=== PATIENT | male | born 1970 | race Caucasian/White ===

== ENCOUNTER 2018-12-09 12:36 | Emergency (ER) | payer BC ==
[2018-12-09] MEDS ORDERED: ASPIRIN 81 MG TABLET, CHEWABLE PO ONE (13:02)
--- NOTE | 2018-12-09 13:05 | ER Document Report ---
ED Medical Screen (RME) - General Chief Complaint: Chest Pain Stated Complaint: CHEST PAIN Time Seen by Provider: 12/09/18 13:00 - HPI Notes: 12/09/18 13:02 Patient is a 48-year-old male with a history of hypertension who presents complaining of sudden onset sternal chest pain that began 1.5 hours ago and would radiate up to the left jaw. Patient states that since then the pain has eased off, but is still causing discomfort. He has had diaphoresis associated and is on his second shirt. He is also had some nausea associated. Denies any prolonged immobilization, distance travel, recent surgery/trauma, personal cancer history, hormone use, smoking, or previous DVT/PE. Denies CANALES, fever, neck pain, URI, n/v/d, Abd pain, dysuria, back pain, or rash. I have treated and performed a rapid initial assessment of this patient. A comprehensive ED assessment and evaluation of the patient, analysis of test results and completion of medical decision making process will be conducted by additional ED providers. PHYSICAL EXAMINATION: GENERAL: Well-appearing, well-nourished and in no acute distress. A&Ox4. Answers questions appropriately. LUNGS: Breath sounds clear to auscultation bilaterally and equal. No wheezes rales or rhonchi. HEART: Regular rate and rhythm without murmurs, rubs, gallops. Extremities: No cyanosis, clubbing, or edema b/l. Matt negative bilaterally. No lower extremity asymmetry. NEUROLOGICAL: Normal speech, normal gait. PSYCH: Normal mood, normal affect. - Related Data Allergies/Adverse Reactions: No Known Allergies Allergy (Unverified 12/09/18 12:59) Past Medical History - Social History Chew tobacco use (# tins/day): No Frequency of alcohol use: None Drug Abuse: None Physical Exam - Vital signs Vitals: Temp Pulse Resp BP Pulse Ox 98.1 F 110 H 18 142/92 H 95 12/09/18 12:49 12/09/18 12:49 12/09/18 12:49 12/09/18 12:49 12/09/18 12:49 Course - Vital Signs Vital signs: Temp Pulse Resp BP Pulse Ox 98.1 F 110 H 18 142/92 H 95 12/09/18 12:49 12/09/18 12:49 12/09/18 12:49 12/09/18 12:49 12/09/18 12:49
--- NOTE | 2018-12-09 13:24 | RADIOLOGY REPORT (SQ) ---
EXAM DESCRIPTION: CHEST 2 VIEWS COMPLETED DATE/TIME: 12/09/2018 1:15 pm REASON FOR STUDY: CP COMPARISON: None. EXAM PARAMETERS: NUMBER OF VIEWS: two views TECHNIQUE: Digital Frontal and Lateral radiographic views of the chest acquired. RADIATION DOSE: NA LIMITATIONS: none FINDINGS: LUNGS AND PLEURA: No opacities, masses or pneumothorax. No pleural effusion. MEDIASTINUM AND HILAR STRUCTURES: No masses or contour abnormalities. HEART AND VASCULAR STRUCTURES: Heart normal size. No evidence for failure. BONES: No acute findings. HARDWARE: Prior cholecystectomy. OTHER: No other significant finding. IMPRESSION: NO ACUTE RADIOGRAPHIC FINDING IN THE CHEST. TECHNICAL DOCUMENTATION: JOB ID: [id number] [employer]- All Rights Reserved Reading location - IP/workstation name: [email or web address]
[2018-12-09 13:41] LABS: INTERNATIONAL RATION (INR) 0.97; PROTHROMBIN TIME 12.9 SEC (11.4-15.4)
[2018-12-09 13:42] LABS: ABSOLUTE BASOPHILS # (AUTO) 0.1 10^3/uL (0.0-0.2); ABSOLUTE EOSINOPHILS # (AUTO) 0.1 10^3/uL (0.0-0.6); ABSOLUTE LYMPHOCYTES (AUTO) 2.3 10^3/uL (0.5-4.7); ABSOLUTE MONOCYTES (AUTO) 0.5 10^3/uL (0.1-1.4); ABSOLUTE NEUT (AUTO) 7.4 10^3/uL (1.7-8.2); BASOPHILS % (AUTO) 0.6 % (0-2); EOSINOPHILS % (AUTO) 1.3 % (0-6); HEMATOCRIT 46.2 % (37.9-51.0); HEMOGLOBIN 16.3 g/dL (13.5-17.0); MEAN CORPUSCULAR HEMOGLOBIN 29.1 pg (27.0-33.4); MEAN CORPUSCULAR HGB CONC 35.4 g/dL (32.0-36.0); MEAN CORPUSCULAR VOLUME 82 fl (80-97); MONOCYTES % (AUTO) 4.9 % (3-13); PLATELET COUNT 257 10^3/uL (150-450); RED BLOOD COUNT 5.62 10^6/uL (4.35-5.55); RED CELL DISTRIBUTION WIDTH 13.5 % (11.5-14.0); SEGMENTED NEUTROPHILS % (AUTO) 71.2 % (42-78); TOTAL CELLS COUNTED % (AUTO) 100 %; WHITE BLOOD COUNT 10.4 10^3/uL (4.0-10.5)
[2018-12-09 13:53] LABS: ALBUMIN 4.7 g/dL (3.5-5.0); ALKALINE PHOSPHATASE 64 U/L (38-126); ANION GAP 11 (5-19); ASPARTATE AMINO TRANSFERASE 39 U/L (17-59); BILIRUBIN,DIRECT 0.1 mg/dL (0.0-0.4); BILIRUBIN,TOTAL 0.6 mg/dL (0.2-1.3); BLOOD UREA NITROGEN 18 mg/dL (7-20); CARBON DIOXIDE 25 mmol/L (22-30); CHLORIDE 104 mmol/L (98-107); CREATINE KINASE 141 U/L (55-170); GLUCOSE 121 mg/dL (75-110); POTASSIUM 4.3 mmol/L (3.6-5.0); TOTAL PROTEIN 7.6 g/dL (6.3-8.2)
[2018-12-09 14:05] LABS: CREATINE KINASE MB 1.17 ng/mL (<4.55); NT PRO BNP 19 pg/mL (<125); TROPONIN I < 0.012 ng/mL
--- NOTE | 2018-12-09 14:46 | ER Document Report ---
Entered by WINSOME CHIN SCRIBE 12/09/18 1431 Acting as scribe for:NIKO GRIFFITHS MD ED Cardiac - General Chief Complaint: Chest Pain Stated Complaint: CHEST PAIN Time Seen by Provider: 12/09/18 13:00 Mode of Arrival: Ambulatory Information source: Patient Notes: Patient is a 48 year old male that presents to the emergency department today with complaints of chest pain with associated nausea, diaphoresis, and dypsnea on exertion. Patient states all the above-mentioned symptoms lasted for approximately 35 minutes just prior to arrival. Patient states he was sitting in his air conditioned truck and broke out into cold sweat with nausea when the substernal chest pain began. Patient states the pain radiated to his jaw. Patient states he walked just a few feet and was short of breath so he sat back down in his truck. Patient states he has increased stress as he is going through a divorce. Patient states he has a positive cardiac history on his mom's side of the family, generally beginning in the 40s. - Related Data Allergies/Adverse Reactions: No Known Allergies Allergy (Unverified 12/09/18 12:59) Past Medical History - General Information source: Patient - Social History Smoking Status: Never Smoker Cigarette use (# per day): No Chew tobacco use (# tins/day): No Frequency of alcohol use: None Drug Abuse: None Lives with: Family Family History: Reviewed & Not Pertinent Patient has suicidal ideation: No Patient has homicidal ideation: No - Past Medical History Cardiac Medical History: Reports: Hx Hypertension Psychiatric Medical History: Reports: Hx Depression Past Surgical History: Reports: Hx Cholecystectomy, Hx Tonsillectomy Review of Systems - Review of Systems Constitutional: See HPI, Diaphoresis EENT: No symptoms reported Cardiovascular: See HPI, Chest pain Respiratory: See HPI, Short of breath Gastrointestinal: See HPI, Nausea Genitourinary: No symptoms reported Male Genitourinary: No symptoms reported Musculoskeletal: No symptoms reported Skin: No symptoms reported Hematologic/Lymphatic: No symptoms reported Neurological/Psychological: No symptoms reported -: Yes All other systems reviewed and negative Physical Exam - Vital signs Vitals: Temp Pulse Resp BP Pulse Ox 98.1 F 110 H 18 142/92 H 95 12/09/18 12:49 12/09/18 12:49 12/09/18 12:49 12/09/18 12:49 12/09/18 12:49 Course - Re-evaluation Re-evalutation: 12/09/18 18:11 Dr. Lopez did speak with the patient at length. The patient decided that he was going to leave AMA. 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 He states he is going to take it easy, take off work, return to [place] and have his work-up done at [facility]. He is going to sign an AMA form. - Vital Signs Vital signs: Temp Pulse Resp BP Pulse Ox 98.1 F 110 H 18 142/92 H 98 12/09/18 12:49 12/09/18 12:49 12/09/18 12:49 12/09/18 12:49 12/09/18 15:02 - Laboratory Result Diagrams: 12/09/18 13:19 12/09/18 13:19 Laboratory results interpreted by me: 12/09/18 12/09/18 13:19 13:19 RBC 5.62 H Glucose 121 H - Diagnostic Test Radiology reviewed: Image reviewed, Reports reviewed - Chest x-ray is unremarkable - EKG Interpretation by Ne EKG shows normal: Sinus rhythm, [place], Intervals, QRS Complexes, ST-T Waves Rate: Tachycardia - 114 - Consults Dr. Lopez Time consulted: 17:10 Consulted provider: will come to ER Discharge - Discharge Clinical Impression: Chest pain Qualifiers: Chest pain type: unspecified Qualified Code(s): R07.9 - Chest pain, unspecified Condition: Stable Disposition: AGAINST MEDICAL ADVICE Additional Instructions: Chest Pain of Unclear Cause You have elected to leave AGAINST MEDICAL ADVICE. You were warned that your pain today was very suspicious for coronary artery disease and that you may be at high risk for a bad outcome, such as heart attack or . Be sure to take your blood pressure medication. Take the nitroglycerin that was provided to you if you have another episode of chest pain. Return the emergency room if you have further episodes of chest pain. Follow-up with your primary care provider when you return home as planned. RETURN TO THE EMERGENCY ROOM IF ANY NEW OR WORSENING SYMPTOMS. Scribe Attestation: 12/09/18 17:17 I personally performed the services described in the documentation, reviewed and edited the documentation which was dictated to the scribe in my presence, and it accurately records my words and actions. I personally performed the services described in the documentation, reviewed and edited the documentation which was dictated to the scribe in my presence, and it accurately records my words and actions.
[2018-12-09 18:26] VITALS: BP 137/99
--- NOTE | 2018-12-10 00:29 | EKG REPORT ---
SEVERITY:- OTHERWISE NORMAL ECG - SINUS TACHYCARDIA : Confirmed by: Serena Chauhan MD 10-Dec-2018 00:28:20
== END 2018-12-09 18:26 | disposition left against medical advice (07) ==
LOC: ER 12:36
DX: R07.9 Chest pain, unspecified (principal); R11.0 Nausea; R61 Generalized hyperhidrosis; R06.00 Dyspnea, unspecified; I10 Essential (primary) hypertension; Z90.49 Acquired absence of other specified parts of digestive tract
CPT/HCPCS: 36415; 71046; 80053; 82550; 82553; 83880; 84484; 85025; 85610; 93005; 93010